=== PATIENT | male | born 1950 | race Caucasian/White ===

== ENCOUNTER 2020-08-07 07:12 | Day surgery (SDCO) | payer MEDICARE, OTHER ==
[~2020-08-07] VITALS: Ht 162.6 cm; Wt 98.4 kg
[~2020-08-07 07:12] MED LIST: ALPHA LIPOIC A100 MG PO; ASPIRIN EC81 MG PO; CALCIUM WITH VIT D PO; CELEXA10 MG PO; CLARITIN10 M2 PO; GLIPIZIDE5 MG PO; HYDRALAZINE 10M10 MG PO; INDERAL LA80 MG PO; JENTADUETO 2.51 EACH PO; LEVEMIR VI100 UNITS/ SC; LEVEMIR100 UNIT/1 SC; LISINOPRIL20 MG PO; LIVALO2 MG PO; LOPID600 MG PO; LYRICA PO; MVI PO; NABUMETONE500 MG PO; NOVOLOG FL100 UNIT/1 SC; POTASSIUM MAGNESIUM PO; RANITIDINE HCL300 M1 PO; SINEMET 25-1001 EAC1 PO; TRULICITY1.5 MG/0.5 SC; ULTRAM50 MG PO; [UNRECOGNIZED DRUG - OTHER] PO
[2020-08-07 08:11] LABS: BASOPHIL 0.3 % (0-2); EOSINOPHIL 0.3 % (0-7); HCT 41.7 % (42.0-52.0); HGB 14.4 g/dl (13.2-18.0); LYMPHOCYTE 13.2 % (15-48); MCH 31.4 pg (25.0-31.0); MCHC 34.5 g/dL (32.0-36.0); MONOCYTE 6.7 % (0-12); MPV 10.8 fL (6.0-9.5); NEUTROPHIL 79.1 % (41-80); NRBC 0; PLT 110 K/uL (150-400); RBC 4.58 M/uL (4.70-6.00); RDW 13.9 % (11.5-14.0)
[2020-08-07 08:32] LABS: BILIRUBIN NEGATIVE (NEGATIVE); BLOOD NEGATIVE Ery/uL (NEGATIVE); CLARITY CLEAR (CLEAR); COLOR YELLOW (YELLOW); GLUCOSE (U) 3+ mg/dL (NORMAL); LEUKOCYTES NEGATIVE Leu/uL (NEGATIVE); NITRITE NEGATIVE (NEGATIVE); PROTEIN 1+ mg/dL (NEGATIVE); UROBILINOGEN 0.2 mg/dL (0.2-1.0)
[2020-08-07 08:41] LABS: ALBUMIN 3.9 g/dL (3.4-5.0); BILIRUBIN - TOTAL 0.8 mg/dL (0.2-1.0); BUN/CREAT RATIO (CALC) 32.9 RATIO; CREATININE 0.7 mg/dL (0.67-1.17); GLOBULIN (CALCULATION) 4.2 g/dL; POTASSIUM 5.2 mmol/L (3.5-5.1); TOTAL PROTEIN 8.1 g/dL (6.4-8.2)
[2020-08-07] MEDS ORDERED: FARXIGA5 MG PO (12:54)
[2020-08-07] MEDS ORDERED: AMITRIPTYLINE H10 MG PO (12:54)
[2020-08-07] MEDS ORDERED: PROTONIX 40MG T40 MG PO (12:54)
[2020-08-07] MEDS ORDERED: PRILOSEC20 MG PO (12:54)
[2020-08-08 05:56] LABS: HCT 36.3 % (42.0-52.0); HGB 12.4 g/dl (13.2-18.0); MCH 31.4 pg (25.0-31.0); MCHC 34.2 g/dL (32.0-36.0); MCV 91.9 fL (78.0-100.0); RBC 3.95 M/uL (4.70-6.00); RDW 13.6 % (11.5-14.0); WBC 8.1 K/uL (4.0-10.5)
[2020-08-08 06:09] LABS: INR 1.29 (0.9-1.2); PROTHROMBIN TIME 15.3 SECONDS (11.4-13.6)
[2020-08-08 06:30] LABS: BUN/CREAT RATIO (CALC) 24.4 RATIO; CREATININE 0.82 mg/dL (0.67-1.17); POTASSIUM 4.5 mmol/L (3.5-5.1)
[2020-08-08] MEDS ORDERED: AUGMENTIN 875-1 EACH PO (13:01)
--- NOTE | 2020-08-08 14:20 | NUR ---
08/08/20 No discharge planning needs are anticipated.
== END 2020-08-08 14:42 | disposition home or self-care (01) ==
LOC: FER 07:12 → FMS 15:08
PROVIDERS: Emergency Medicine; Hospitalist; ADMIT Surgery
DX: K35.30 Acute appendicitis with localized peritonitis, without perforation or gangrene (principal); K74.60 Unspecified cirrhosis of liver; I10 Essential (primary) hypertension; E11.9 Type 2 diabetes mellitus without complications; E78.5 Hyperlipidemia, unspecified; G20 Parkinson's disease; K27.9 Peptic ulcer, site unspecified, unspecified as acute or chronic, without hemorrhage or perforation; E66.9 Obesity, unspecified; K21.9 Gastro-esophageal reflux disease without esophagitis; F32.9 Major depressive disorder, single episode, unspecified; Z68.37 Body mass index [BMI] 37.0-37.9, adult; Z88.6 Allergy status to analgesic agent; Z79.82 Long term (current) use of aspirin; Z79.4 Long term (current) use of insulin; Z79.899 Other long term (current) drug therapy; Z20.822 Contact with and (suspected) exposure to COVID-19
CPT/HCPCS: 36415; 80048; 80053; 81001; 85025; 85610; 87040; 93005; G0378; J0694; J1100; J1170; J1885; J2250; J2270; J2405; J2543; J2704; J2710; J3010; J7030; J7120; Q9967; U0002

== ENCOUNTER 2021-04-09 14:21 | Emergency (ER) | payer MEDICARE, OTHER ==
[~2021-04-09 14:21] MED LIST changes: +AMITRIPTYLINE H10 MG PO; +AUGMENTIN 875-1 EACH PO; +FARXIGA5 MG PO; +PRILOSEC20 MG PO; +PROTONIX 40MG T40 MG PO
[2021-04-09 16:09] LABS: BASOPHIL 0.2 % (0-2); EOSINOPHIL 0 % (0-7); HGB 13.6 g/dl (13.2-18.0); LYMPHOCYTE 9.8 % (15-48); MCH 31.3 pg (25.0-31.0); MONOCYTE 1.9 % (0-12); MPV 10.4 fL (6.0-9.5); NEUTROPHIL 87.5 % (41-80); NRBC 0; PLT 237 K/uL (150-400); RBC 4.35 M/uL (4.70-6.00); RDW 12.2 % (11.5-14.0); WBC 8.8 K/uL (4.0-10.5)
[2021-04-09 16:42] LABS: LACTIC ACID 1.7 mmol/L (0.4-1.9)
[2021-04-09 16:43] LABS: BILIRUBIN - TOTAL 1.1 mg/dL (0.2-1.0); BUN/CREAT RATIO (CALC) 52.6 RATIO; CREATININE 0.95 mg/dL (0.67-1.17); GLOBULIN (CALCULATION) 5.6 g/dL; POTASSIUM 5.8 mmol/L (3.5-5.1); TOTAL PROTEIN 8.6 g/dL (6.4-8.2)
[2021-04-09 18:38] LABS: BILIRUBIN NEGATIVE (NEGATIVE); BLOOD NEGATIVE Ery/uL (NEGATIVE); CLARITY CLEAR (CLEAR); COLOR YELLOW (YELLOW); GLUCOSE (U) 3+ mg/dL (NORMAL); LEUKOCYTES NEGATIVE Leu/uL (NEGATIVE); NITRITE NEGATIVE (NEGATIVE); PROTEIN NEGATIVE (NEGATIVE); UROBILINOGEN 0.2 mg/dL (0.2-1.0)
[2021-04-09 20:40] LABS: BUN/CREAT RATIO (CALC) 54.2 RATIO; CREATININE 0.83 mg/dL (0.67-1.17)
[2021-04-09 20:55] LABS: POTASSIUM 5.5 mmol/L (3.5-5.1)
[2021-04-09] MEDS ORDERED: TESSALON PERLE100 MG PO (21:38)
[2021-04-09] MEDS ORDERED: VIBRAMYCIN100 MG PO (21:38)
[2021-04-09] MEDS ORDERED: BROMFED DM COU473 ML PO (21:38)
== END 2021-04-09 22:02 | disposition home or self-care (01) ==
LOC: FER 14:21
PROVIDERS: Emergency Medicine Emergency Medical Services; Nurse Practitioner Family
DX: J18.9 Pneumonia, unspecified organism (principal); E87.5 Hyperkalemia; E11.65 Type 2 diabetes mellitus with hyperglycemia; I10 Essential (primary) hypertension; G20 Parkinson's disease; Z20.822 Contact with and (suspected) exposure to COVID-19; Z88.6 Allergy status to analgesic agent; Z87.891 Personal history of nicotine dependence
CPT/HCPCS: 36415; 36600; 71046; 71275; 80048; 80053; 81003; 82009; 82803; 83605; 83690; 83880; 84145; 84484; 85025; 85379; 87040; 93005; J7030; Q9967; U0002